=== PATIENT | male | born 2000 | race Two or more races ===

== ENCOUNTER 2021-07-11 14:32 | Emergency (ER) | payer OTHER ==
[2021-07-11] MEDS ORDERED: diphenhydrAMINE 25 MG CAP ONE (15:17)
[2021-07-11] MEDS ORDERED: Acetaminophen 500 MG TAB ONE (15:17)
[2021-07-11] MEDS ORDERED: Ketorolac Tromethamine 30 MG/ML VIAL ONE (15:17)
[2021-07-11] MEDS ORDERED: Metoclopramide HCl 10 MG TAB ONE (15:18)
== END 2021-07-11 16:53 | disposition home or self-care (01) ==
LOC: ERS 14:32
DX: J10.1 Influenza due to other identified influenza virus with other respiratory manifestations (principal)
CPT/HCPCS: 87081; 87430; 87804; 96372; 99283; J1885